=== PATIENT | female | born 1985 | race Caucasian/White ===

== ENCOUNTER → 2017-01-05 | Outpatient (CLI) | payer MEDICAID ==
--- NOTE | 2017-01-05 16:19 | Diagnostic Imaging Report ---
PROCEDURE: CT head without contrast. TECHNIQUE: Multiple contiguous axial images were obtained through the brain without the use of intravenous contrast. INDICATION: Migraine headache for three months with dizziness. FINDINGS: Ventricles and sulci are within normal limits for size. There is no intracranial hemorrhage identified. There is no abnormal mass effect or shift of midline structures. IMPRESSION: Unremarkable CT of the head. Dictated by: Dictated on workstation # [id number]
== END ==
LOC: RAD 15:53
PROVIDERS: ATTEND Nurse Practitioner Family
DX: R51 Headache (principal)
CPT/HCPCS: 70450

== ENCOUNTER 2018-06-15 13:47 | Emergency (ER) | payer MEDICAID ==
[~2018-06-15] VITALS: Ht 165.1 cm; Wt 57.2 kg
[2018-06-15 14:21] LABS: CLARITY,URINE CLEAR; COLOR,URINE AMBER; GLUCOSE, URINE (UA) NEGATIVE (NEGATIVE); KETONES,URINE 2+ (NEGATIVE); LEUKOCYTE ESTERASE ,URINE 2+ (NEGATIVE); NITRITE,URINE NEGATIVE (NEGATIVE); PH,URINE 5 (5-9); PROTEIN,URINE 1+ (NEGATIVE); UROBILINOGEN,URINE 4 MG/DL (NORMAL)
--- NOTE | 2018-06-15 14:21 | ED Abdominal Pain ---
General Chief Complaint: -Female Stated Complaint: OVARIAN PAIN Nursing Triage Note: Pt states she was dx with a L sided ovarian cyst a week ago at [facility]. Pt states she called [facility] and was told to come to ED today to be checked. Sepsis Screen: No Definite Risk Source of Information: Patient Exam Limitations: No Limitations History of Present Illness Date Seen by Provider: Jun 15, 2018 Time Seen by Provider: 14:19 Initial Comments To ER with reports of left lower quadrant abdominal pain. She saw her primary care provider for this last week, had a pelvic exam done at primary care and a bedside ultrasound which she states did show a cyst on the left ovary. She has persistent pain today despite taking ibuprofen and presents here no fevers or chills. She denies vaginal discharge nausea vomiting fevers or chills. Timing/Duration: 1 Week Severity/Quality: Moderate Location: [facility] Radiation: No Radiation Activities at Onset: None Allergies and Home Medications Allergies Coded Allergies: No Known Drug Allergies (Unverified , 06/15/18) Home Medications Tramadol HCl 50 Mg Tablet, 50 MG PO Q6H PRN for PAIN-MODERATE TO SEVERE Prescribed by: MARIANNA LATIF on 06/15/18 1446 Patient Home Medication List Home Medication List Reviewed: Yes Review of Systems Review of Systems Constitutional: see HPI EENTM: No Symptoms Reported Respiratory: No Symptoms Reported Cardiovascular: No Symptoms Reported Gastrointestinal: See HPI, Abdominal Pain; Denies Diarrhea, Denies Nausea Genitourinary: No Symptoms Reported; Denies Burning, Denies Discharge Musculoskeletal: no symptoms reported Skin: no symptoms reported Psychiatric/Neurological: No Symptoms Reported Endocrine: No Symptoms Reported Hematologic/Lymphatic: No Symptoms Reported Past Hgqpajf-Wadibj-Yocmmi Hx Patient Social History Alcohol Use: Denies Use Recreational Drug Use: No Smoking Status: Current Everyday Smoker Type Used: Cigarettes Recent Foreign Travel: No Contact w/Someone Who Travel: No Recent Infectious Disease Expo: No Recent Hopitalizations: No Physical Abuse: No Sexual Abuse: No Seasonal Allergies Seasonal Allergies: No Past Medical History Surgeries: Yes Tubal Ligation Respiratory: No Cardiac: No Neurological: No Last Menstrual Period: May 22, 2018 Genitourinary: No Gastrointestinal: No Musculoskeletal: No Endocrine: No HEENT: No Cancer: No Psychosocial: Yes Anxiety, Depression Nursing Suicide Risk Score: 0 Integumentary: No Blood Disorders: No Adverse Reaction/Blood Tranf: No Physical Exam Vital Signs Vital Signs - First Documented 06/15/18 13:59 Temp 98.2 Pulse 75 Resp 12 B/P (MAP) 103/69 (80) Pulse Ox 99 Capillary Refill : Less Than 3 Seconds Height/Weight/BMI Height: 5'5.00" Weight: 126lbs. oz. 57.702032jz; BMI Method:Stated General Appearance: WD/WN, no apparent distress, thin HEENT: PERRL/EOMI, normal ENT inspection Neck: non-tender, full range of motion Respiratory: no respiratory distress, no accessory muscle use Cardiovascular: regular rate, rhythm, no murmur Gastrointestinal: normal bowel sounds, soft, tenderness Extremities: normal range of motion, non-tender, normal inspection Neurologic/Psychiatric: alert, normal mood/affect, oriented x 3 Skin: normal color, warm/dry Progress/Results/Core Measures Results/Orders Lab Results Laboratory Tests Test 06/15/18 14:10 Range/Units Urine Color NEGRO H Urine Clarity CLEAR Urine pH 5 5-9 Urine Specific [place] 1.025 H 1.016-1.022 Urine Protein 1+ H NEGATIVE Urine Glucose (UA) NEGATIVE NEGATIVE Urine Ketones 2+ H NEGATIVE Urine Nitrite NEGATIVE NEGATIVE Urine Bilirubin 1+ H NEGATIVE Urine Urobilinogen 4 H NORMAL MG/DL Urine Leukocyte Esterase 2+ H NEGATIVE Urine RBC (Auto) 1+ H NEGATIVE Urine RBC RARE /HPF Urine WBC 2-5 /HPF Urine Squamous Epithelial Cells 5-10 /HPF Urine Crystals NONE /LPF Urine Bacteria NEGATIVE /HPF Urine Casts NONE /LPF Urine Mucus LARGE H /LPF Urine Culture Indicated NO Urine Test NEGATIVE NEGATIVE Urine Opiates Screen NEGATIVE NEGATIVE Urine Oxycodone Screen NEGATIVE NEGATIVE Urine Methadone Screen NEGATIVE NEGATIVE Urine Propoxyphene Screen NEGATIVE NEGATIVE Urine Barbiturates Screen NEGATIVE NEGATIVE Ur Tricyclic Antidepressants Screen NEGATIVE NEGATIVE Urine Phencyclidine Screen NEGATIVE NEGATIVE Urine Amphetamines Screen NEGATIVE NEGATIVE Urine Methamphetamines Screen NEGATIVE NEGATIVE Urine Benzodiazepines Screen POSITIVE H NEGATIVE Urine Cocaine Screen NEGATIVE NEGATIVE Urine Cannabinoids Screen POSITIVE H NEGATIVE My Orders Orders - MARIANNA LATIF APRN Ua Culture If Indicated (06/15/18 14:09) Drug Screen Stat (Urine) (06/15/18 14:09) Us Non Ob Pelvis Comp/Transvag (06/15/18 14:09) Hcg,Qualitative Urine (06/15/18 14:22) Vital Signs/I&O 06/15/18 13:59 Temp 98.2 Pulse 75 Resp 12 B/P (MAP) 103/69 (80) Pulse Ox 99 Blood Pressure Mean: 80 Departure Communication (Admissions) it help desk technician reports no visualized ovarian cyst, there is some free fluid in the pelvis so this may represent a ruptured ovarian cyst. Impression Primary Impression: History of ovarian cyst Additional Impressions: Free fluid in pelvis suspected ruptured ovarian cyst Disposition: HOME, SELF-CARE Condition: Stable Departure-Patient Inst. Decision time for Depature: 14:45 Referrals: DIOR BRANNON DO (PCP/Family) Primary Care Physician Patient Instructions: Ovarian Cyst (DC) Add. Discharge Instructions: 1. Medication as directed 2. Follow-up with your doctor next week 3. Scripts Tramadol HCl (Ultram) 50 Mg Tablet 50 MG PO Q6H PRN for PAIN-MODERATE TO SEVERE, #10 TAB Prov: MARIANNA LATIF APRN 06/15/18 Work/School Note: Work Release Form Date Seen in the Emergency Department: Jun 15, 2018 Return to Work: Jun 17, 2018 MARIANNA LATIF APRN Jun 15, 2018 14:21
[2018-06-15 14:28] LABS: BILIRUBIN,URINE 1+ (NEGATIVE)
[2018-06-15 14:29] LABS: BACTERIA,URINE NEGATIVE /HPF; RBC,URINE RARE /HPF
[2018-06-15 14:32] LABS: AMPHETAMINE SCREEN, URINE NEGATIVE (NEGATIVE); BARBITURATE SCREEN URINE NEGATIVE (NEGATIVE); BENZODIAZEPINES SCREEN URINE POSITIVE (NEGATIVE); CANNABINOID SCREEN, URINE POSITIVE (NEGATIVE); COCAINE SCREEN URINE NEGATIVE (NEGATIVE); METHADONE STAT NEGATIVE (NEGATIVE); METHAMPHETAMINE SCREEN URINE S NEGATIVE (NEGATIVE); OPIATE SCREEN URINE NEGATIVE (NEGATIVE); OXYCODONE STAT NEGATIVE (NEGATIVE); PROPOXYPHENE STAT NEGATIVE (NEGATIVE); TRICYCLIC ANTIDEPRESSANTS SCRE NEGATIVE (NEGATIVE)
[2018-06-15] MEDS ORDERED: TRAM-42 PO (14:46)
[2018-06-15 14:49] VITALS: BP 110/79
--- NOTE | 2018-06-15 15:06 | Diagnostic Imaging Report ---
INDICATION: History of tubal ligation 4 years ago. Left-sided pelvic pain. TECHNIQUE: Multiple real time rodrigez scale sonographic images were obtained of the pelvis endovaginally. CORRELATION STUDY: None FINDINGS: UTERUS/ENDOMETRIUM: Uterus measures 7.8 x 4.7 x 3.8 cm. Endometrial thickness is 12 mm. Endometrial thickness upper limits of normal. RIGHT OVARY: 2.3 x 1.9 x 3.2 cm. LEFT OVARY: 4.3 x 2.6 x 2.5 cm. Ovaries appearing unremarkable. No mass. Normal blood flow. There is presence of free pelvic fluid. IMPRESSION: 1. Unremarkable appearing pelvic ultrasound examination. Free pelvic fluid may be physiologic. Dictated by: Dictated on workstation # [id number]
--- OUTSIDE RECORDS SUMMARY | 2018-06-16 03:38 | XMS REPORT ---
Author Author DOROTA CHONG Organization [facility] Address [address] [place] [address] Care Team Providers Care Bindery Machine Operator Name Role Phone DOROTA CHONG Unavailable PROBLEMS Type Condition ICD9-CM Code QXQ33-PH Code Onset Dates Condition Status SNOMED Code Problem Tobacco abuse Z72.0 Active 107770159 Problem Anxiety F41.9 Active 73194562 Problem Dysthymia F34.1 Active 32918525 Problem Sleep difficulties G47.9 Active 069666254 Problem Current moderate episode of major depressive disorder without prior episode F32.1 Active 64897624 ALLERGIES No Known Allergies ENCOUNTERS Encounter Location Date Diagnosis [facility] [id number] [place] [address] [phone] Jun, [place] [address] [id number] May, Tobacco abuse Z72.0 ; Left lower quadrant abdominal pain of unknown etiology R10.32 ; Anxiety F41.9 and Current moderate episode of major depressive disorder without prior episode F32.1 [facility] [id number] [place] [address] [phone] May, [place] [id number] [place] [address] [id number] Apr, [facility] [id number] [place] [address] [id number] Mar, Current moderate episode of major depressive disorder without prior episode F32.1 ; Sleep difficulties G47.9 ; Anxiety F41.9 and Burn T30.0 [facility] [id number] [place] [address] [id number] Mar, Current moderate episode of major depressive disorder without prior episode F32.1 ; Sleep difficulties G47.9 and Anxiety F41.9 [place] [id number] [phone] February, [facility] [id number] [place] [address] [id number] February, Current moderate episode of major depressive disorder without prior episode F32.1 ; Sleep difficulties G47.9 and Low TSH level R94.6 [facility] [id number] [place] [address] [phone] Jan, [place] [id number] [place] [address] [phone] Jan, Current moderate episode of major depressive disorder without prior episode F32.1 and Sleep difficulties G47.9 [place] [id number] [place] [address] [phone] Jan, Left ear pain H92.02 and Left otitis media with effusion H65.[address] [place] [address] [id number] Sep, [facility] [id number] [place] [address] [id number] Apr, Dental examination Z01.[address] [place] [address] [id number] Dec, Intractable headache, unspecified chronicity pattern, unspecified headache type R51 ; Nausea R11.0 and Photophobia, bilateral H53.143 [address] [place] [address] [id number] Nov, Problems related to high-risk sexual behavior Z72.51 and History of trichomonal vaginitis Z86.19 [address] [id number] Aug, [address] [place] [address] [id number] Jul, Vaginal discharge N89.8 ; High risk sexual behavior Z72.51 and Trichomonas vaginalis infection A59.9 [place] [address] [facility] [id number] [phone] Jul, [address] [place] [address] [id number] Jun, [facility] [address] [id number] [phone] Jun, Routine gynecological examination Z01.419 and Encounter for screening for infections with predominantly sexual mode of transmission Z11.3 [facility] [id number] [id number] Mar, Dysthymia F34.1 [facility] [id number] [id number] February, [facility] [id number] [place] [address] [id number] Nov, [facility]ysthymia F34.1 [facility] [id number] [place] [address] [id number] Jul, [facility] [id number] [place] [address] [id number] Mar, Dysthymia 300.4 [facility] [id number] [place] [address] [id number] February, Depression 311 [facility] [id number] [place] [address] [id number] February, [facility] [id number] [place] [phone] Jan, [facility] [id number] [place] [phone] Jan, [facility] [id number] [place] [phone] Oct, [facility] [id number] [place] [address] [phone] Oct, [facility] [id number] [place] [address] [phone] Sep, [facility] [id number] [place] [phone]- [phone] Sep, [facility] [id number] [phone] Aug, [facility] [id number] [place] [phone] Aug, [facility] [address] [facility] [id number] [place] [phone] Aug, [facility] [address] [facility] [id number] [place] [address] Aug, [facility] [address] [facility] [id number] [place] [phone] May, IMMUNIZATIONS No Known Immunizations SOCIAL HISTORY Never Assessed REASON FOR VISIT Depression f/u Tiara PROCTOR PLAN OF CARE Activity Details Follow Up 2 Weeks Reason:CHM Anxiety VITAL SIGNS Height 65.5 in 2018-03-27 Weight 122.1 lbs 2018-03-27 Temperature 99 degrees Fahrenheit 2018-03-27 Heart Rate 78 bpm 2018-03-27 Respiratory Rate 16 2018-03-27 BMI 20.01 kg/m2 2018-03-27 Blood pressure systolic 100 mmHg 2018-03-27 Blood pressure diastolic 62 mmHg 2018-03-27 MEDICATIONS Medication Instructions Dosage Frequency Start Date End Date Duration Status Prozac 20 MG Orally Once a day 1 capsule in the morning 24h 30 days Active BuSpar 10 mg Orally Twice a day 1 tablet 12h 12 Mar, 2018 30 days Active HydrOXYzine HCl 25 MG Orally at bedtime (30 mins before) 2 tablet as needed 0 days Active Ibuprofen 800 MG Orally Three times a day 1 tablet 8h Active RESULTS No Results PROCEDURES No Known procedures INSTRUCTIONS MEDICATIONS ADMINISTERED No Known Medications MEDICAL (GENERAL) HISTORY Type Description Date Medical History depression Medical History heart murmur at , 24 hr holter monitor worn 2014 Surgical History dilatation and curettage 2005 Surgical History Tubes in ears infant Surgical History tubal ligation 2014 Hospitalization History surgeries, childbirth
--- OUTSIDE RECORDS SUMMARY | 2018-06-16 03:39 | XMS REPORT ---
Author Author DONTRELL REYES Organization [facility] Address [address] [place] [address] Care Team Providers Care Coordinating Producer Name Role Phone DONTRELL REYES Unavailable PROBLEMS Type Condition ICD9-CM Code [id number] Code Onset Dates Condition Status SNOMED Code Problem Anxiety F41.9 Active 48079423 Problem Sleep difficulties G47.9 Active 667213557 Problem Current moderate episode of major depressive disorder without prior episode F32.1 Active 57782448 Problem Dysthymia F34.1 Active 33471761 ALLERGIES No Information ENCOUNTERS Encounter Location Date Diagnosis [place] [id number] [place] [id number] May, [address] [id number] Apr, [address] [id number] [place] [address] [id number] Mar, Current moderate episode of major depressive disorder without prior episode F32.1 ; Sleep difficulties G47.9 ; Anxiety F41.9 and Burn T30.0 [address] [id number] [place] [address] [id number] Mar, Current moderate episode of major depressive disorder without prior episode F32.1 ; Sleep difficulties G47.9 and Anxiety F41.9 [address] [id number] [place] [address] [id number] February, [address] [id number] [place] [address] [id number] February, Current moderate episode of major depressive disorder without prior episode F32.1 ; Sleep difficulties G47.9 and Low TSH level R94.6 [place] [id number] [place] [address] [id number] Jan, [address] [id number] Jan, Current moderate episode of major depressive disorder without prior episode F32.1 and Sleep difficulties G47.9 [place] [id number] [place] [address] [id number] Jan, Left ear pain H92.02 and Left otitis media with effusion H65.92 [place] [id number] [place] [id number] Sep, [facility] [id number] [place] [address] [phone] Apr, Dental examination Z01.20 [address] [place] [address] [id number] Dec, Intractable headache, unspecified chronicity pattern, unspecified headache type R51 ; Nausea R11.0 and Photophobia, bilateral H53.143 [address] [place] [address] [id number] Nov, Problems related to high-risk sexual behavior Z72.51 and History of trichomonal vaginitis Z86.[address] [place] [address] [id number] Aug, [place] [id number] [place] [address] [id number] Jul, Vaginal discharge N89.8 ; High risk sexual behavior Z72.51 and Trichomonas vaginalis infection A59.[address] [id number] [id number] Jul, [id number] [place] [address] [id number] Jun, [id number] [place] [address] [id number] Jun, Routine gynecological examination Z01.419 and Encounter for screening for infections with predominantly sexual mode of transmission Z11.3 [address] [place] [address] [id number] Mar, Dysthymia F34.1 [address] [id number] February, [place] [id number] [phone] Nov, Dysthymia F34.1 [facility] [id number] [place] [phone] Jul, [facility] [address] [id number] [place] [id number] Mar, Dysthymia 300.4 [facility] [id number] [place] [phone] February, Depression 311 [facility] [id number] [place]ACH[place] [phone] February, [facility] [address] [place] [phone] Jan, [facility] [address]00565100[place], [place] [address] Jan, [facility] [id number] [place] [phone]- [phone] Oct, [facility] [id number] [place]ACH[place] [phone] Oct, [facility] [id number] [place] [id number] Sep, [facility] [address]00565100[place], [place] [address] Sep, [facility] [address] [id number] [place] [id number] Aug, [facility] [address]00565100[place], [place] [address] Aug, [facility] [address] [id number] [place] [phone] Aug, [facility] [address]00565100[place], [place] [address] Aug, [facility] [address] [id number] [place] [phone] May, IMMUNIZATIONS No Known Immunizations SOCIAL HISTORY Never Assessed REASON FOR VISIT lab requests PLAN OF CARE VITAL SIGNS MEDICATIONS Unknown Medications RESULTS No Results PROCEDURES No Known procedures INSTRUCTIONS MEDICATIONS ADMINISTERED No Known Medications MEDICAL (GENERAL) HISTORY Type Description Date Medical History depression Medical History heart murmur at , 24 hr holter monitor worn 2014 Surgical History dilatation and curettage 2005 Surgical History Tubes in ears infant Surgical History tubal ligation 2013 Hospitalization History surgeries, childbirth
--- OUTSIDE RECORDS SUMMARY | 2018-06-16 03:39 | XMS REPORT ---
Author Author DONALD AGUILAR Organization [facility] Address [address] [place] [address] Care Team Providers Care Paraprofessional Interpreter Name Role Phone FITZPATRICK DONALD VIRK Unavailable PROBLEMS Type Condition ICD9-CM Code SFO37-KE Code Onset Dates Condition Status SNOMED Code Problem Dysthymia F34.1 Active 55016251 Assessment Routine gynecological examination Z01.419 Jun, Active 753541377 Assessment Encounter for screening for infections with predominantly sexual mode of transmission Z11.3 Jun, Active 929877486 ALLERGIES Substance Reaction Event Type Date Status N.K.D.A. Unknown Non Drug Allergy Jun, Unknown SOCIAL HISTORY No smoking Hx information available PLAN OF CARE VITAL SIGNS Height 65.5 in 2016-07-07 Weight 113.4 lbs 2016-07-07 Heart Rate 72 bpm 2016-07-07 Respiratory Rate 12 2016-07-07 BMI 18.58 kg/m2 2016-07-07 Blood pressure systolic 100 mmHg 2016-07-07 Blood pressure diastolic 70 mmHg 2016-07-07 MEDICATIONS Unknown Medications RESULTS Name Result Date Reference Range TRICHOMONAS (IN HOUSE) 2016-07-07 TRICHOMONAS neg Control + Lot # [id number] Exp date 04/01 BACTERIAL VAGINOSIS (IN HOUSE) 2016-07-07 RESULTS neg Control + Lot # [id number] Exp date 11/01 GC/CHLAMYDIA (SWAB OR URINE)-RAPID 2016-07-07 Chlamydia trachomatis, JARRED Negative Negative Neisseria gonorrhoeae, JARRED Negative Negative PDF Report 2016-07-07 PDF Report1 LCLS CULTURE, GENITAL 2016-07-07 Genital Culture, Routine Final report Result 1 PAP TEST, HPV IF ASCUS 2016-07-07 DIAGNOSIS: Specimen adequacy: Clinician provided ICD10: Performed by: . . Note: . PROCEDURES Procedure Date Ordered Related Diagnosis Body Site SPECIMEN HANDLING Jul 07, 2016 CHYLMD TRACH, DNA, AMP PROBE Jul 07, 2016 LAB NOT BILLED BY [facility] Sept 22, 2016 CLEMENT VAG, DNA, DIR PROBE Jul 07, 2016 N.GONORRHOEAE, DNA, AMP PROB Jul 07, 2016 Preventive Care Est Pt. Age 18-39 Jul 07, 2016 CULTURE, BACTERIA, OTHER Jul 07, 2016 IMMUNIZATIONS No Known Immunizations
--- OUTSIDE RECORDS SUMMARY | 2018-06-16 03:39 | XMS REPORT ---
Author Author KHADRA ARVIZU [facility] Address Unknown Care Team Providers Care Urgent Care Name Role Phone KHADRA ARVIZU Unavailable PROBLEMS Type Condition ICD9-CM Code AAG27-UY Code Onset Dates Condition Status SNOMED Code Problem Dysthymia F34.1 Active 27147470 ALLERGIES No Known Allergies ENCOUNTERS Encounter Location Date Diagnosis [place] [id number] [place] [address] [id number] Sep, [facility] [id number] [place] [address] [id number] Apr, Dental examination Z01.20 [place] [id number] [place] [address] [id number] Dec, Intractable headache, unspecified chronicity pattern, unspecified headache type R51 ; Nausea R11.0 and Photophobia, bilateral H53.143 [place] [id number] [place] [address] [id number] Nov, Problems related to high-risk sexual behavior Z72.51 and History of trichomonal vaginitis Z86.19 [place] [id number] [place] [address] [id number] Aug, [place] [id number] [place] [address] [id number] Jul, Vaginal discharge N89.8 ; High risk sexual behavior Z72.51 and Trichomonas vaginalis infection A59.9 [facility] [address] [id number] [id number] Jul, [place] [id number] [place] [address] [id number] Jun, [address] [place] [address] [id number] Jun, Routine gynecological examination Z01.419 and Encounter for screening for infections with predominantly sexual mode of transmission Z11.3 [facility] [address] [id number] [id number] Mar, Dysthymia F34.1 [facility] [id number][place] [id number] February, [facility] [address] [id number] [id number] Nov, Dysthymia F34.1 [facility] [place] [id number] [id number] Jul, [facility] [id number] [place] [address] [id number] Mar, Dysthymia 300.4 [facility] [id number] [place] [address] [id number] February, Depression 311 [facility] [id number] [place] [address] [id number] February, [facility] [id number] [place] [address] Jan, [facility] [id number] [place] [address]- [address] Jan, [facility] [id number] [place] [address]- [address] Oct, [facility] [id number][place] [phone] Oct, [facility] [id number] [place] [address] [id number] Sep, [facility] [address] [place] [address]- [address] Sep, [facility] [id number] [place] [address] [id number] Aug, [facility] [id number] [place] [address] Aug, [facility] [id number] [place] [address] [id number] Aug, [facility] [address] [facility] [id number] [place] [address] Aug, [facility] [address] [facility] [id number] [place] [phone] May, IMMUNIZATIONS No Known Immunizations SOCIAL HISTORY Never Assessed REASON FOR VISIT jennifer PLAN OF CARE Activity Details Follow Up prn Reason:TE VITAL SIGNS Heart Rate 94 bpm 2017-04-26 Blood pressure systolic 114 mmHg 2017-04-26 Blood pressure diastolic 81 mmHg 2017-04-26 MEDICATIONS Medication Instructions Dosage Frequency Start Date End Date Duration Status Ibuprofen 800 MG Orally Three times a day 1 tablet 8h Active RESULTS No Results PROCEDURES Procedure Date Ordered Result Body Site LTD ORAL EVALUATION - PROBLEM FOCUS April 26, 2017 INTRAORL-PERIAPICAL 1 FILM 74217 April 26, 2017 INSTRUCTIONS MEDICATIONS ADMINISTERED No Known Medications MEDICAL (GENERAL) HISTORY Type Description Date Medical History depression Medical History heart murmur at , 24 hr holter monitor worn 2014 Surgical History dilatation and curettage 2005 Surgical History Tubes in ears infant Surgical History tubal ligation 2013 Hospitalization History surgeries, childbirth
--- OUTSIDE RECORDS SUMMARY | 2018-06-16 03:39 | XMS REPORT ---
Author Author DOROTA CHONG Organization [facility] Address [address] [place] [address] Care Team Providers Care Set Up Mechanic Coating Machines Name Role Phone DOROTA CHONG Unavailable PROBLEMS Type Condition ICD9-CM Code [id number] Code Onset Dates Condition Status SNOMED Code Problem Anxiety F41.9 Active 06991152 Problem Sleep difficulties G47.9 Active 512637050 Problem Current moderate episode of major depressive disorder without prior episode F32.1 Active 19323594 Problem Dysthymia F34.1 Active 04495730 ALLERGIES No Information ENCOUNTERS Encounter Location Date Diagnosis [place] [id number] [place] [address] [id number] May, [place] [id number] [place] [address] [phone] May, [place] [id number] [place] [address] [id number] Apr, [place] [id number] [place] [address] [id number] Mar, Current moderate episode of major depressive disorder without prior episode F32.1 ; Sleep difficulties G47.9 ; Anxiety F41.9 and Burn T30.0 [place] [id number] [place] [address] [id number] Mar, Current moderate episode of major depressive disorder without prior episode F32.1 ; Sleep difficulties G47.9 and Anxiety F41.9 [place] [id number] [place] [address] [id number] February, [place] [id number] [place] [address] [id number] February, Current moderate episode of major depressive disorder without prior episode F32.1 ; Sleep difficulties G47.9 and Low TSH level R94.6 [place] [id number] [place] [address] [id number] Jan, [place] [id number] [place] [address] [id number] Jan, Current moderate episode of major depressive disorder without prior episode F32.1 and Sleep difficulties G47.9 [place] [id number] [place] [address] [id number] Jan, Left ear pain H92.02 and Left otitis media with effusion H65.92 [place] [id number] [place] [address] [id number] Sep, [facility] [id number] [place] [address] [id number] Apr, Dental examination Z01.20 [place] [id number] [place] [address] [id number] Dec, Intractable headache, unspecified chronicity pattern, unspecified headache type R51 ; Nausea R11.0 and Photophobia, bilateral H53.143 [place] [id number] [place] [address] [id number] Nov, Problems related to high-risk sexual behavior Z72.51 and History of trichomonal vaginitis Z86.19 [place] [id number] [place] [address] [id number] Aug, [place] [id number] [place] [address] [id number] Jul, Vaginal discharge N89.8 ; High risk sexual behavior Z72.51 and Trichomonas vaginalis infection A59.9 [place] [address] [facility] [id number] [place] [phone] Jul, [address] [place] [address] [id number] Jun, [place] [id number] [place] [address] [id number] Jun, Routine gynecological examination Z01.419 and Encounter for screening for infections with predominantly sexual mode of transmission Z11.3 [place] [id number] [place] [address] [id number] Mar, Dysthymia F34.1 [facility] [address] [id number] [place] [phone] February, [facility] [address] [id number] [place] [id number] Nov, Dysthymia F34.1 [facility] [place] [address] [facility] [id number] [place] [phone] Jul, [facility] [address] [id number] [place] [phone] Mar, Dysthymia 300.4 [facility] [address] [id number] [place] [phone] February, Depression 311 [facility] [address] [id number] [place] [phone] February, [facility] [address]00565100[place] [address] Jan, [facility] [address]00565100[place] [address] Jan, [facility] [address]00565100[place] [address] Oct, [facility] [address] [id number] [place] [phone] Oct, [facility] [address] [id number] [place] [phone] Sep, [facility] [address]00565100[place] [address] Sep, [facility] [address] [id number] [place] [id number] Aug, [facility] [address] [id number] [address] Aug, [facility] [address] [facility] [id number] [place] [phone] Aug, [facility] [address] [id number] [address] Aug, [facility] [id number] [place] [phone] May, IMMUNIZATIONS No Known Immunizations SOCIAL HISTORY Never Assessed REASON FOR VISIT Lab results PLAN OF CARE VITAL SIGNS MEDICATIONS Unknown Medications RESULTS No Results PROCEDURES No Known procedures INSTRUCTIONS MEDICATIONS ADMINISTERED No Known Medications MEDICAL (GENERAL) HISTORY Type Description Date Medical History depression Medical History heart murmur at , 24 hr holter monitor worn 2014 Surgical History dilatation and curettage 2006 Surgical History Tubes in ears Surgical History tubal ligation 2014 Hospitalization History surgeries, childbirth
--- OUTSIDE RECORDS SUMMARY | 2018-06-16 03:39 | XMS REPORT ---
Author Author DOROTA CHONG Organization [facility] Address [address] [place] [address] Care Team Providers Care Director Of Individual Giving Name Role Phone DOROTA CHONG Unavailable PROBLEMS Type Condition ICD9-CM Code TQH82-SU Code Onset Dates Condition Status SNOMED Code Problem Anxiety F41.9 Active 26587802 Problem Sleep difficulties G47.9 Active 025913355 Problem Current moderate episode of major depressive disorder without prior episode F32.1 Active 68576574 Problem Dysthymia F34.1 Active 51411243 ALLERGIES No Known Allergies ENCOUNTERS Encounter Location Date Diagnosis [place] [id number] [place] [address] [id number] Apr, [facility] [address] [id number] Apr, [place] [id number] [place] [address] [id number] Mar, Current moderate episode of major depressive disorder without prior episode F32.1 ; Sleep difficulties G47.9 ; Anxiety F41.9 and Burn T30.0 [place] [id number] [place] [address] [id number] Mar, Current moderate episode of major depressive disorder without prior episode F32.1 ; Sleep difficulties G47.9 and Anxiety F41.9 [facility] [id number] [place] [address] [id number] February, [place] [id number] [place] [address] [id number] February, Current moderate episode of major depressive disorder without prior episode F32.1 ; Sleep difficulties G47.9 and Low TSH level R94.6 [place] [id number] [place] [address] [id number] Jan, [place] [address] [place] [address] [id number] Jan, Current moderate episode of major depressive disorder without prior episode F32.1 and Sleep difficulties G47.9 [place] [id number] [place] [address] [id number] Jan, Left ear pain H92.02 and Left otitis media with effusion H65.92 [place] [id number] [place] [address] [id number] Sep, [facility] [address] [id number] Apr, Dental examination Z01.20 [place] [id number] [place] [address] [id number] Dec, Intractable headache, unspecified chronicity pattern, unspecified headache type R51 ; Nausea R11.0 and Photophobia, bilateral H53.[address] [id number] Nov, Problems related to high-risk sexual behavior Z72.51 and History of trichomonal vaginitis Z86.19 [place] [id number] [place] [address] [id number] Aug, [address] [id number] Jul, Vaginal discharge N89.8 ; High risk sexual behavior Z72.51 and Trichomonas vaginalis infection A59.[address] [id number] [id number] Jul, [address] [place] [address] [id number] Jun, [address] [place] [address] [id number] Jun, Routine gynecological examination Z01.419 and Encounter for screening for infections with predominantly sexual mode of transmission Z11.3 [address] [place] [address] [id number] Mar, Dysthymia F34.1 [place] [id number] [place] [address] [id number] February, [facility] [address] [facility] [id number] [place] [id number] Nov, Dysthymia F34.1 [facility] [place] [address] [id number][place] [phone] Jul, [facility] [address] [id number] [place] [id number] Mar, [facility]ysthymia 300.4 [facility] [id number] [place] [phone] February, Depression 311 [facility] [address] [place] [id number] [place] [id number] February, [facility] [address]00565100[place], [place] [address] Jan, [facility] [address]00565100[place], [place] [address] Jan, [facility] [address] [place] [address]- 25[address] Oct, [facility] [address] [id number] [place] [id number] Oct, [facility] [id number] [place] [id number] Sep, [facility] [address]00565100[place], [place] [address] Sep, [facility] [address] [id number] [place] [id number] Aug, [facility] [address] [id number], [place] [address]- [address] Aug, [facility] [address] [id number] [place] [phone] Aug, [facility] [address]00565100[place], [place] [address]- [address] Aug, [facility] [address] [id number] [place] [phone] May, IMMUNIZATIONS No Known Immunizations SOCIAL HISTORY Never Assessed REASON FOR VISIT woke up with left ear pain this morning, decreased hearing in left ear---PIETRO ding PLAN OF CARE Activity Details Follow Up prn if not improving, and anytime to est care Reason: VITAL SIGNS Height 65.5 in 2018-01-23 Weight 123.8 lbs 2018-01-23 Temperature 98.8 degrees Fahrenheit 2018-01-23 Heart Rate 88 bpm 2018-01-23 Respiratory Rate 16 2018-01-23 BMI 20.29 kg/m2 2018-01-23 Blood pressure systolic 102 mmHg 2018-01-23 Blood pressure diastolic 64 mmHg 2018-01-23 MEDICATIONS Medication Instructions Dosage Frequency Start Date End Date Duration Status Ibuprofen 800 MG Orally Three times a day 1 tablet 8h Active PredniSONE 20 mg Orally Once a day 1 tablet 24h Jan, Jan, 05 days Active RESULTS No Results PROCEDURES No Known procedures INSTRUCTIONS MEDICATIONS ADMINISTERED No Known Medications MEDICAL (GENERAL) HISTORY Type Description Date Medical History depression Medical History heart murmur at , 24 hr holter monitor worn 2014 Surgical History dilatation and curettage 2005 Surgical History Tubes in ears Surgical History tubal ligation 2013 Hospitalization History surgeries, childbirth
--- OUTSIDE RECORDS SUMMARY | 2018-06-16 03:39 | XMS REPORT ---
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
--- OUTSIDE RECORDS SUMMARY | 2018-06-16 03:39 | XMS REPORT ---
Author Author DOROTA DE LA CRUZ Organization [employer] Address Unknown Phone Unavailable Care Team Providers Care Rolled Ham Lacer Name Role Phone DOROTA DE LA CRUZ Unavailable Allergies No Known Allergies Problems Problem Type Condition Code Onset Dates Condition Status Problem Dysthymia F34.1 Active Medications Medication Code System Code Instructions Start Date End Date Status Dosage Amoxicillin [facility] [address]-01 500 MG Orally every 12 hrs Aug 22, 2016 Sep 01, 2016 1 capsule Diflucan [facility] [address]-02 150 MG Orally take 1 tablet on day 5 of antibiotic and 1 tablet after finishing antibiotic Aug 22, 2016 1 tablet Results No Known Results Summary Purpose [employer] Submission
--- OUTSIDE RECORDS SUMMARY | 2018-06-16 03:39 | XMS REPORT ---
Author Author DONTRELL REYES Organization [employer] Address Unknown Phone Unavailable Care Team Providers Care Rail Bonder Name Role Phone DONTRELL REYES CP Unavailable Allergies No Known Allergies Problems Problem Type Condition Code Onset Dates Condition Status Problem Dysthymia F34.1 Active Medications No Known Medications Results No Known Results Summary Purpose [employer] Submission
--- OUTSIDE RECORDS SUMMARY | 2018-06-16 03:39 | XMS REPORT ---
Author Author DOROTA CHONG Organization [facility] Address [address] [place] [address] Care Team Providers Care Long Lines Operator Name Role Phone DOROTA CHONG Unavailable PROBLEMS Type Condition ICD9-CM Code [id number] Code Onset Dates Condition Status SNOMED Code Problem Anxiety F41.9 Active 35370369 Problem Sleep difficulties G47.9 Active 476265583 Problem Current moderate episode of major depressive disorder without prior episode F32.1 Active 35772639 Problem Dysthymia F34.1 Active 12454558 ALLERGIES No Known Allergies ENCOUNTERS Encounter Location Date Diagnosis [place] [id number] [place] [address] [id number] May, [place] [id number] [place] [address] [id number] May, [place] [id number] [place] [address] [id number] Apr, [address] [id number] Mar, Current moderate episode of major depressive disorder without prior episode F32.1 ; Sleep difficulties G47.9 ; Anxiety F41.9 and Burn T30.0 [place] [id number] [place] [address] [id number] Mar, Current moderate episode of major depressive disorder without prior episode F32.1 ; Sleep difficulties G47.9 and Anxiety F41.9 [place] [id number] [place] [address] [id number] February, [address] [id number] February, Current moderate episode of major depressive disorder without prior episode F32.1 ; Sleep difficulties G47.9 and Low TSH level R94.6 [address] [place] [address] [id number] Jan, [place] [id number] [place] [address] [id number] Jan, Current moderate episode of major depressive disorder without prior episode F32.1 and Sleep difficulties G47.9 [place] [id number] [place] [address] [id number] Jan, Left ear pain H92.02 and Left otitis media with effusion H65.92 [place] [id number] [place] [address] [id number] Sep, [facility] [address] [id number] Apr, Dental examination Z01.20 [place] [id number] [place] [address] [id number] Dec, Intractable headache, unspecified chronicity pattern, unspecified headache type R51 ; Nausea R11.0 and Photophobia, bilateral H53.143 [place] [id number] [place] [address] [id number] Nov, Problems related to high-risk sexual behavior Z72.51 and History of trichomonal vaginitis Z86.19 [place] [id number] [place] [address] [id number] Aug, [place] [id number] [place] [address] [id number] Jul, Vaginal discharge N89.8 ; High risk sexual behavior Z72.51 and Trichomonas vaginalis infection A59.9 [place] [address] [facility] [id number] [id number] Jul, [address] [place] [address] [id number] Jun, [place] [id number] [place] [address] [id number] Jun, Routine gynecological examination Z01.419 and Encounter for screening for infections with predominantly sexual mode of transmission Z11.3 [place] [id number] [place] [address] [id number] Mar, Dysthymia F34.1 [facility] [address] [id number] [place] [id number] February, [facility] [address] [id number] [place] [phone] Nov, Dysthymia F34.1 [facility] [place] [address] [facility] [id number] [place]ID[place] [phone] Jul, [facility] [address] [id number][place] [id number] Mar, Dysthymia 300.4 [facility] [address] [id number] [place] [id number] February, Depression 311 [facility] [address] [facility] [id number] [place] [id number] February, [facility] [address] [address] Jan, [facility] [address], [place] [address] Jan, [facility] [address], [place] [address] Oct, [facility] [address] [id number][place] [id number] Oct, [facility] [address] [id number][place] [id number] Sep, [facility] [address], [place] [address] Sep, [facility] [address] [id number][place] [phone] Aug, [facility] [address] [facility] [id number][place] [address] Aug, [facility] [address] [facility] [id number][place] [id number] Aug, [facility] [address] [place] [address] [id number], [place] [address] Aug, [facility] [address] [place] [address] [id number] [place] [phone] May, IMMUNIZATIONS No Known Immunizations SOCIAL HISTORY Never Assessed REASON FOR VISIT 1 month follow up on depression, has not noticed much change at all. lizeth Mcneill PLAN OF CARE Activity Details Follow Up 4 Weeks Reason:CHM Depression VITAL SIGNS Height 65.5 in 2018-02-27 Weight 127 lbs 2018-02-27 Temperature 98.2 degrees Fahrenheit 2018-02-27 Heart Rate 72 bpm 2018-02-27 Respiratory Rate 16 2018-02-27 BMI 20.81 kg/m2 2018-02-27 Blood pressure systolic 110 mmHg 2018-02-27 Blood pressure diastolic 60 mmHg 2018-02-27 MEDICATIONS Medication Instructions Dosage Frequency Start Date End Date Duration Status HydrOXYzine HCl 25 MG Orally at bedtime (30 mins before) 2 tablet as needed 0 days Active Prozac 20 MG Orally Once a day 1 capsule in the morning 24h 30 days Active Ibuprofen 800 MG Orally Three times a day 1 tablet 8h Active RESULTS No Results PROCEDURES Procedure Date Ordered Result Body Site [facility] February 27, 2018 NELSON, ROUTINE* February 27, 2018 INSTRUCTIONS MEDICATIONS ADMINISTERED No Known Medications MEDICAL (GENERAL) HISTORY Type Description Date Medical History depression Medical History heart murmur at , 24 hr holter monitor worn 2014 Surgical History dilatation and curettage 2005 Surgical History Tubes in ears infant Surgical History tubal ligation 2013 Hospitalization History surgeries, childbirth
--- OUTSIDE RECORDS SUMMARY | 2018-06-16 03:39 | XMS REPORT ---
Author Author DONALD AGUILAR [facility] Address [address] [place] [address] Care Team Providers Care Delivery Truck Driver Heavy Name Role Phone DONALD AGUILAR Unavailable PROBLEMS Type Condition ICD9-CM Code [id number] Code Onset Dates Condition Status SNOMED Code Problem Dysthymia F34.1 Active 11818586 ALLERGIES Unknown Allergies SOCIAL HISTORY No smoking Hx information available PLAN OF CARE VITAL SIGNS MEDICATIONS Medication Instructions Dosage Frequency Start Date End Date Duration Status Amoxicillin 500 MG Orally 2 times a day 1 capsule 12h 28 Jun, 2016 8 Jul, 2016 10 day(s) Active RESULTS No Results PROCEDURES No Known procedures IMMUNIZATIONS No Known Immunizations
--- OUTSIDE RECORDS SUMMARY | 2018-06-16 03:39 | XMS REPORT ---
Author Author DOROTA CHONG Organization [facility] Address [address] [place] [address] Care Team Providers Care Division Sergeant Name Role Phone DOROTA CHONG Unavailable PROBLEMS Type Condition ICD9-CM Code JDO26-CE Code Onset Dates Condition Status SNOMED Code Problem Anxiety F41.9 Active 16137956 Problem Sleep difficulties G47.9 Active 408296971 Problem Current moderate episode of major depressive disorder without prior episode F32.1 Active 58485360 Problem Dysthymia F34.1 Active 64950984 ALLERGIES No Known Allergies ENCOUNTERS Encounter Location Date Diagnosis [place] [address] [id number] [place] [address] [id number] May, [facility] [address] [id number] Apr, [place] [id number] [place] [address] [id number] Mar, Current moderate episode of major depressive disorder without prior episode F32.1 ; Sleep difficulties G47.9 ; Anxiety F41.9 and Burn T30.0 [place] [id number] [place] [address] [id number] Mar, Current moderate episode of major depressive disorder without prior episode F32.1 ; Sleep difficulties G47.9 and Anxiety F41.9 [facility] [address] [id number] [place] [address] [id number] February, [place] [id number] [place] [address] [id number] February, Current moderate episode of major depressive disorder without prior episode F32.1 ; Sleep difficulties G47.9 and Low TSH level R94.6 [place] [id number] [place] [address] [id number] Jan, [place] [address] [place] [address] [id number] Jan, Current moderate episode of major depressive disorder without prior episode F32.1 and Sleep difficulties G47.9 [place] [address] [place] [address] [id number] Jan, Left ear pain H92.02 and Left otitis media with effusion H65.92 [place] [address] [place] [address] [id number] Sep, [facility] [address] [id number] Apr, Dental examination Z01.20 [place] [address] [place] [address] [id number] Dec, Intractable headache, unspecified chronicity pattern, unspecified headache type R51 ; Nausea R11.0 and Photophobia, bilateral H53.[address] [id number] Nov, Problems related to high-risk sexual behavior Z72.51 and History of trichomonal vaginitis Z86.19 [place] [address] [place] [address] [id number] Aug, [address] [id number] Jul, Vaginal discharge N89.8 ; High risk sexual behavior Z72.51 and Trichomonas vaginalis infection A59.[address] [id number] [id number] Jul, [address] [place] [address] [id number] Jun, [address] [place] [address] [id number] Jun, Routine gynecological examination Z01.419 and Encounter for screening for infections with predominantly sexual mode of transmission Z11.3 [address] [place] [address] [id number] Mar, Dysthymia F34.1 [place] [id number] [place] [address] [id number] February, [facility] [address] [facility] [id number] [id number] Nov, Dysthymia F34.1 [facility] [place] [address] [address] [id number] [id number] Jul, [facility] [address] [place] [address] [id number] [id number] Mar, Dysthymia 300.4 [facility] [id number][place] [id number] February, Depression 311 [facility] [id number], [place] [id number] February, [facility] [address], [place] [address] Jan, [facility] [address]00565100[place], [place] [address] Jan, [facility] [address] [place] [address] Oct, [facility] [place] [address] [place] [address] [id number][place] [id number] Oct, [facility] [place] [id number], [place] [id number] Sep, [facility] [address]65[address], [place] [address] Sep, [facility] [address] [place] [address] [id number][place] [id number] Aug, [facility] [address] [id number], [place] [address] Aug, [facility] [address] [place] [address] [id number][place] [id number] Aug, [facility] [address]65[address], [place] [address] Aug, [facility] [address] [place] [address] [id number][place] [phone] May, IMMUNIZATIONS No Known Immunizations SOCIAL HISTORY Never Assessed REASON FOR VISIT Establish Care, needs back on depression addy Gonzalez RN PLAN OF CARE Activity Details Follow Up 1 Months or as indicated by lab Reason:CHM Depression VITAL SIGNS Height 65.5 in 2018-01-30 Weight 125.6 lbs 2018-01-30 Temperature 98.9 degrees Fahrenheit 2018-01-30 Heart Rate 68 bpm 2018-01-30 Respiratory Rate 18 2018-01-30 BMI 20.58 kg/m2 2018-01-30 Blood pressure systolic 102 mmHg 2018-01-30 Blood pressure diastolic 58 mmHg 2018-01-30 MEDICATIONS Medication Instructions Dosage Frequency Start Date End Date Duration Status HydrOXYzine HCl 25 MG Orally at bedtime (30 mins before) 1-2 tablet as needed Jan, 0 days Active Ibuprofen 800 MG Orally Three times a day 1 tablet 8h Active Prozac 10 mg Orally Once a day 1 capsule in the morning 24h Jan, 0 days Active RESULTS No Results PROCEDURES Procedure Date Ordered Result Body Site [facility] January 30, 2018 VENIPUNCT, ROUTINE* January 30, 2018 INSTRUCTIONS MEDICATIONS ADMINISTERED No Known Medications MEDICAL (GENERAL) HISTORY Type Description Date Medical History depression Medical History heart murmur at , 24 hr holter monitor worn 2014 Surgical History dilatation and curettage 2005 Surgical History Tubes in ears Surgical History tubal ligation 2014 Hospitalization History surgeries, childbirth
--- OUTSIDE RECORDS SUMMARY | 2018-06-16 03:39 | XMS REPORT ---
Author Author DOROTA DE LA CRUZ [facility] Address Unknown Phone Unavailable Care Team Providers Care Psychiatric Aide Name Role Phone DOROTA DE LA CRUZ CP Unavailable Allergies, Adverse Reactions, Alerts Substance Reaction Event Type N.K.D.A. Info Not Available Non Drug Allergy Problems Problem Type Condition Code Onset Dates Condition Status Assessment Vaginal discharge N89.8 Active Assessment High risk sexual behavior Z72.51 Active Problem Dysthymia F34.1 Active Assessment Trichomonas vaginalis infection A59.9 Active Medications Medication Code System Code Instructions Start Date End Date Status Dosage Metronidazole [facility] [address]-28 500 MG Orally Twice a day Aug 08, 2016 Aug 15, 2016 1 tablet Procedures Procedure Coding System Code Date CLEMENT VAG, DNA, DIR PROBE CPT-4 29367 Aug 08, 2016 Office Visit, Est Pt., Level 3 CPT-4 19821 Aug 08, 2016 LAB NOT BILLED BY [facility] CPT-4 NOBLL Aug 08, 2016 Vital Signs Date/Time: Aug 08, 2016 Cardiac Monitoring Heart Rate 70 bpm Weight 113 lbs Height 65.5 in BMI 18.52 Index Blood Pressure Diastolic 68 mmHg Blood Pressure Systolic 100 mmHg Results Name Result Date Reference Range Unit Abnormality Flag TRICHOMONAS (IN HOUSE) ----TRICHOMONAS positive [id number] ----Control + [id number] ----Lot # [id number] ----Exp date 20160808 BACTERIAL VAGINOSIS (IN HOUSE) ----Exp date [id number] ----Control + [id number] ----Lot # [id number] ----RESULTS negative [id number] Summary Purpose eClinicalWorks Submission
--- OUTSIDE RECORDS SUMMARY | 2018-06-16 03:40 | XMS REPORT ---
Author Author DONALD AGUILAR Organization [facility] Address [address] [place] [address] Care Team Providers Care Faculty Support Coordinator Name Role Phone NANETTE FAGANDONALD JAVED Unavailable PROBLEMS Type Condition ICD9-CM Code [id number] Code Onset Dates Condition Status SNOMED Code Problem Dysthymia F34.1 Active 06150758 ALLERGIES No Known Allergies SOCIAL HISTORY Never Assessed PLAN OF CARE Activity Details Follow Up 3 mo Reason: VITAL SIGNS Height 65.5 in 2016-12-08 Weight 114.1 lbs 2016-12-08 Temperature 98 degrees Fahrenheit 2016-12-08 Heart Rate 68 bpm 2016-12-08 Respiratory Rate 16 2016-12-08 BMI 18.70 kg/m2 2016-12-08 Blood pressure systolic 110 mmHg 2016-12-08 Blood pressure diastolic 62 mmHg 2016-12-08 MEDICATIONS Medication Instructions Dosage Frequency Start Date End Date Duration Status Flagyl 500 mg Orally every 8 hrs 1 tablet 8h Nov, Dec, 10 day(s) Active RESULTS Name Result Date Reference Range TRICHOMONAS (IN HOUSE) 2016-12-08 TRICHOMONAS positive Control + Lot # [id number] Exp date 06/2017 BACTERIAL VAGINOSIS (IN HOUSE) 2016-12-08 RESULTS negative Control + Lot # [id number] Exp date 06/2017 GC/CHLAM URINE (STATE) 2016-12-08 CHLAMYDIA GC PROCEDURES Procedure Date Ordered Result Body Site LAB NOT BILLED BY [facility] Dec 08, 2016 CLEMENT VAG, DNA, DIR PROBE Dec 08, 2016 No Charge Dec 08, 2016 IMMUNIZATIONS No Known Immunizations MEDICAL (GENERAL) HISTORY Type Description Date Medical History depression Medical History heart murmur at , 24 hr holter monitor worn 2014 Surgical History dilatation and curettage 2005 Surgical History Tubes in ears infant Surgical History tubal ligation 2014 Hospitalization History surgeries, childbirth
--- OUTSIDE RECORDS SUMMARY | 2018-06-16 03:40 | XMS REPORT ---
Author Author DONTRELL REYES Organization [employer] Address Unknown Phone Unavailable Care Team Providers Care Egg Smeller Name Role Phone DONTRELL REYES CP Unavailable Allergies, Adverse Reactions, Alerts Substance Reaction Event Type N.K.D.A. Info Not Available Non Drug Allergy Problems Problem Type Condition Code Onset Dates Condition Status Problem Depression 311 Active Problem Acute bronchitis 466.0 Active Problem Dysthymia F34.1 Active Assessment Dysthymia F34.1 Active Problem Unspecified perforation of tympanic membrane 384.20 Active Problem Tooth (broken) (fractured) (due to trauma), without mention of complication 873.63 Active Medications Medication Code System Code Instructions Start Date End Date Status Dosage Lamictal [facility] [address]-71 25 MG Orally Once a day at hs take 1 tab x 1 wk then inc to 2 tabs March 23, 2015 1-2tablets Venlafaxine HCl [facility] [address]-79 25 MG Orally Twice a day March 23, 2015 1 tablet with food Procedures Procedure Coding System Code Date Office Visit, Est Pt., Level 3 CPT-4 30376 Nov 16, 2015 Vital Signs Date/Time: Nov 16, 2015 Temperature 97.7 F Weight 124.2 lbs Height 65.5 in BMI 20.35 Index Blood Pressure Diastolic 94 mmHg Blood Pressure Systolic 140 mmHg Cardiac Monitoring Heart Rate 84 bpm Results No Known Results Summary Purpose eClinicalWorks Submission
--- OUTSIDE RECORDS SUMMARY | 2018-06-16 03:40 | XMS REPORT | Continuity of Care Document ---
Author Author [facility] Address Unknown Phone Unavailable Allergies There is no data. Medications There is no data. Problems Date Dx Coded Attending Type Code Diagnosis Diagnosed By 06/10/2013 873.63 OPEN WOUND OF TOOTH (BROKEN) (FRACTURED) (DUE TO TRAUMA) WITHOUT MENTION OF COMPLICATION 06/10/2013 DIOR BRANNON DO 873.63 OPEN WOUND OF TOOTH (BROKEN) (FRACTURED) (DUE TO TRAUMA) WITHOUT MENTION OF COMPLICATION 06/10/2013 DIOR BRANNON DO 873.63 OPEN WOUND OF TOOTH (BROKEN) (FRACTURED) (DUE TO TRAUMA) WITHOUT MENTION OF COMPLICATION 06/10/2013 DONTRELL REYES APRN 873.63 OPEN WOUND OF TOOTH (BROKEN) (FRACTURED) (DUE TO TRAUMA) WITHOUT MENTION OF COMPLICATION 06/10/2013 DIOR BRANNON DO 873.63 OPEN WOUND OF TOOTH (BROKEN) (FRACTURED) (DUE TO TRAUMA) WITHOUT MENTION OF COMPLICATION 08/29/2013 DIOR BRANNON DO 466.0 ACUTE BRONCHITIS 08/29/2013 DIOR BRANNON DO 466.0 ACUTE BRONCHITIS 08/29/2013 DONTRELL REYES APRN 466.0 ACUTE BRONCHITIS 08/29/2013 DIOR BRANNON DO 466.0 ACUTE BRONCHITIS 09/03/2014 DIOR BRANNON DO 384.20 PERFORATION OF TYMPANIC MEMBRANE UNSPECIFIED 09/03/2014 DONTRELL REYES APRN 384.20 PERFORATION OF TYMPANIC MEMBRANE UNSPECIFIED 09/03/2014 DIOR BRANNON DO 384.20 PERFORATION OF TYMPANIC MEMBRANE UNSPECIFIED 01/28/2015 DIOR BRANNON DO 311 DEPRESSIVE DISORDER NOS 01/28/2015 DIOR BRANNON DO 780.79 FATIGUE 01/05/2017 DONALD GARCIA Ot R51 HEADACHE 01/20/2017 DONALD GARCIA Ot R51 HEADACHE Procedures Code [place] [address] ROUTINE VENIPUNCTURE 01/28/2015 40586 CBC 01/28/2015 85531 CMP 01/28/2015 [id number] GFR CALC (RESULT ONLY) 01/28/2015 89904 TSH 01/28/2015 Results Test Result Range THYROID PEROXIDASE (TPO) ANTIBODY - 02/27/18 10:10 THYROID PEROXIDASE ANTIBODIES <1 IU/mL <9 Encounters ACCT No. Visit Date/Time Discharge Status Pt. Type Provider Facility Loc./Unit Complaint [id number] 01/28/2015 10:39:00 01/28/2015 23:59:59 CLS Outpatient DIOR BRANNON DO [id number] 09/15/2014 10:31:00 09/15/2014 23:59:59 CLS Outpatient DONTRELL REYES APRN [id number] 09/03/2014 09:54:00 09/03/2014 23:59:59 CLS Outpatient DIOR BRANNON DO [id number] 08/29/2013 09:52:00 08/29/2013 23:59:59 CLS Outpatient DIOR BRANNON DO [id number] 06/10/2013 14:29:00 Document Registration [id number] 04/10/2018 09:20:00 04/10/2018 23:59:59 CLS Outpatient DONTRELL REYES APRN [facility] [id number] 02/27/2018 09:20:00 Document Registration [id number] 01/05/2017 15:53:00 01/05/2017 23:59:59 CLS Outpatient DONALD GARCIA [facility] RAD R51
--- OUTSIDE RECORDS SUMMARY | 2018-06-16 03:40 | XMS REPORT ---
Author Author DONTRELL REYES [facility] Address [address] [place] [address] Care Team Providers Care Configuration Management Architect Name Role Phone REYESDONTRELL Unavailable PROBLEMS Type Condition ICD9-CM Code [id number] Code Onset Dates Condition Status SNOMED Code Problem Sleep difficulties G47.9 Active 381099986 Problem Current moderate episode of major depressive disorder without prior episode F32.1 Active 22512983 Problem Dysthymia F34.1 Active [id number] ALLERGIES No Information ENCOUNTERS Encounter Location Date Diagnosis [facility] [address] [id number] Mar, [facility] [address] [id number] Mar, [facility] [address] [id number] February, [address] [id number] February, Current moderate episode of major depressive disorder without prior episode F32.1 ; Sleep difficulties G47.9 and Low TSH level R94.6 [facility] [address] [id number] Jan, [address] [id number] Jan, Current moderate episode of major depressive disorder without prior episode F32.1 and Sleep difficulties G47.[address] [id number] Jan, Left ear pain H92.02 and Left otitis media with effusion H65.92 [facility] [address] [id number] Sep, 2017 [facility] [address] [place] [id number] Apr, Dental examination Z01.20 [facility] [id number] [place] [place] [id number] Dec, Intractable headache, unspecified chronicity pattern, unspecified headache type R51 ; Nausea R11.0 and Photophobia, bilateral H53.143 [facility] [id number] [place] [place] [id number] Nov, Problems related to high-risk sexual behavior Z72.51 and History of trichomonal vaginitis Z86.19 [facility] [address] [place] [id number] Aug, [place] [id number] [place] [id number] Jul, Vaginal discharge N89.8 ; High risk sexual behavior Z72.51 and Trichomonas vaginalis infection A59.[address] [id number] [id number] Jul, [id number] [place] [id number] Jun, [id number] [place] [id number] Jun, Routine gynecological examination Z01.419 and Encounter for screening for infections with predominantly sexual mode of transmission Z11.3 [address] [place] [place] [id number] Mar, Dysthymia F34.1 [address] [place] [place] [id number] February, [address] [id number] [place]DES [place] [id number] Nov, Dysthymia F34.1 [facility] [address] [id number] Jul, [facility] [id number] [place] [id number] Mar, Dysthymia 300.[address] [place] [id number] February, Depression 311 [facility] [address] [place] [id number] [id number] February, [facility] [id number] [address] Jan, [facility] [id number] [address] Jan, [facility] [id number] [address] Oct, [facility] [id number] [place] [place] [id number] Oct, [facility] [id number] [place] [place] [id number] Sep, [facility] [id number] [address] Sep, [facility] [id number] [place] [id number] Aug, [facility] [address] [id number] [address] Aug, [facility] [id number] [place] [id number] Aug, [facility] [id number] [address] Aug, [facility] [address] [place] [address] [id number] [place] [id number] May, IMMUNIZATIONS No Known Immunizations SOCIAL HISTORY Never Assessed REASON FOR VISIT phone call PLAN OF CARE VITAL SIGNS MEDICATIONS Unknown Medications RESULTS No Results PROCEDURES No Known procedures INSTRUCTIONS MEDICATIONS ADMINISTERED No Known Medications MEDICAL (GENERAL) HISTORY Type Description Date Medical History depression Medical History heart murmur at , 24 hr holter monitor worn 2014 Surgical History dilatation and curettage 2006 Surgical History Tubes in ears infant Surgical History tubal ligation 2014 Hospitalization History surgeries, childbirth
== END 2018-06-15 14:49 | disposition home or self-care (01) ==
LOC: EDUNIT# 13:47 → ER 13:48
DX: R18.8 Other ascites (principal); R10.32 Left lower quadrant pain; F41.9 Anxiety disorder, unspecified; F32.9 Major depressive disorder, single episode, unspecified; F17.210 Nicotine dependence, cigarettes, uncomplicated; Z98.51 Tubal ligation status; Z87.448 Personal history of other diseases of urinary system
CPT/HCPCS: 76830; 80306; 81000; 84703